=== PATIENT | female | born 1975 | race Caucasian/White ===

== ENCOUNTER 2017-04-26 16:47 | Emergency (ER) | payer OTHER ==
[~2017-04-26] VITALS: Ht 160 cm; Wt 54.2 kg
[2017-04-26 16:54] VITALS: BP 165/98; PULSE 93; RESP 16; TEMP 98.9; O2SAT 98
--- NOTE | 2017-04-26 17:52 | PD ---
HPI Chief Complaint: Injury Time Seen by Provider: 17:46 Travel History International Travel<30 days: No Contact w/Intl Traveler<30days: No Traveled to known affect area: No History of Present Illness HPI 42-year-old female presents for evaluation of right knee pain. She reports that 6 days ago she was skiing and she twisted her right knee when she fell while skiing. The bindings of her ski did not pop off of her boot like it is supposed to. She has had pain in her right knee since then which is throbbing and worse when walking. She has been icing and resting it but symptoms persist which prompted evaluation. She has no other complaints at this time. [facility] Social History Alcohol Use: Yes Tobacco Use: Yes Allergies-Medications (Allergen,Severity, Reaction): Coded Allergies: No Known Allergies (Verified Allergy, Unknown, 04/26/17) Review of Systems General / Constitutional: No: Chills Musculoskeletal: Positive: Pain Skin: Positive Other (denies open wounds) Physical Exam Narrative GENERAL: Well-developed well-nourished female in no acute distress SKIN: Warm and dry. HEAD: Atraumatic. Normocephalic. CARDIOVASCULAR: Regular rate and rhythm. No murmur appreciated. RESPIRATORY: No accessory muscle use. Clear to auscultation. Breath sounds equal bilaterally. MUSCULOSKELETAL: No obvious deformities. Tender to palpation to the inferior aspect of the anterior right knee. There is pain with flexion and extension but full flexion and extension is preserved. There is no obvious laxity on valgus/varus/anterior/posterior stress. Data Data Last Documented VS Vital Signs Date Time Temp Pulse Resp B/P (MAP) Pulse Ox O2 Delivery O2 Flow Rate FiO2 04/26/17 16:54 98.9 93 16 165/98 (120) 98 Orders Orders Knee, Complete (4vws) (04/26/17 ) [facility] Medical Decision Making Medical Screen Exam Complete: Yes Emergency Medical Condition: Yes Medical Record Reviewed: Yes Differential Diagnosis Ligamentous disruption, meniscal disruption, bursitis, strain, tibial plateau fracture Narrative Course X-ray imaging of the right knee reveals tiny joint effusion with no acute bony abnormality. The history is concerning for possible meniscus versus ligamentous injury. Recommended follow-up with primary care physician next week if symptoms persist likely for outpatient MRI imaging. She is declining knee immobilizer and crutches at this time. She is stable for discharge. Diagnosis Primary Impression: Knee internal derangement Additional Instructions: Continue ice to the affected area several times a day 15 minutes at a time until swelling is resolved. Avoid strenuous activity. Follow-up next week with primary care physician. If symptoms persist outpatient MRI imaging may be warranted. Med/Other Pt SpecificInfo: No Change to Meds Disposition: 01 DISCHARGE HOME Condition: Stable Kevon Savage Apr 26, 2017 17:52
--- NOTE | 2017-04-26 18:49 | RADRPT ---
EXAM DATE/TIME: 04/26/2017 17:57 [facility] COMPARISON: No previous studies available for comparison. INDICATIONS : Right medial knee pain after snow skiing last wednesday. MEDICAL HISTORY : None. SURGICAL HISTORY : None. ENCOUNTER: Initial ACUITY: 4 - 6 days PAIN SCORE: 7/10 LOCATION: Right knee FINDINGS: Four view examination of the right knee demonstrates no evidence of fracture or dislocation. Bony mi neralization is normal. The articular surfaces are intact. A tiny joint effusion. CONCLUSION: Tiny joint effusion. Clinton Smith Jr., MD on April 26, 2017 at 18:45 Board Certified Radiologist. This report was verified electronically.
== END 2017-04-26 19:12 | disposition home or self-care (01) ==
LOC: PHED 16:47 → PHEFT 19:12
DX: M23.90 Unspecified internal derangement of unspecified knee (principal); V00.321A Fall from snow-skis, initial encounter; Y93.23 Activity, snow (alpine) (downhill) skiing, snowboarding, sledding, tobogganing and snow tubing; Z72.0 Tobacco use
CPT/HCPCS: 73564; 99283